=== PATIENT | female | born 1980 | race Hispanic/Latino ===

== ENCOUNTER 2023-03-27 22:16 | Day surgery (SDC) | payer OTHER ==
[~2023-03-27] VITALS: Ht 162.6 cm; Wt 74.4 kg
[2023-03-27 23:52] LABS: BASO % 0.3 % (0.0-1.0); EOS % 0.1 % (0.0-3.0); HEMATOCRIT 39.1 % (36.0-47.0); HEMOGLOBIN 13.2 g/dl (12.0-15.5); LYMPH % 12.8 % (24.0-44.0); MEAN CORPUSCULAR HEMOGLOBIN 28.9 pg (27.0-33.0); MEAN CORPUSCULAR HGB CONC 33.8 g/dl (32.0-36.5); MEAN CORPUSCULAR VOLUME 85.7 fl (80.0-96.0); MONO # 1.1 10^3/uL (0.0-0.8); MONO % 7.2 % (2.0-8.0); NEUTROPHILS # 12.2 10^3/uL (1.5-8.5); NEUTROPHILS % 79.1 % (36.0-66.0); PLATELET COUNT, AUTOMATED 328 10^3/uL (150-450); RED BLOOD COUNT 4.56 10^6/uL (4.00-5.40); WHITE BLOOD COUNT 15.4 10^3/uL (4.0-10.0)
[2023-03-28] VITALS (9 sets, daily range): BP systolic 113–145; BP diastolic 56–85; TEMP 97.6–98.5; O2SAT 96–100
[2023-03-28 00:17] LABS: LIPASE 22 U/L (12-53)
[2023-03-28 00:19] LABS: ALBUMIN 3.6 G/DL (3.2-5.2); ALKALINE PHOSPHATASE 87 U/L (46-116); ALT/SGPT 25 U/L (7.0-40); AST/SGOT 16 U/L (<34); BILIRUBIN,DIRECT 0.3 MG/DL (<0.4); BILIRUBIN,TOTAL 1.2 MG/DL (0.3-1.2); BLOOD UREA NITROGEN 7 MG/DL (9-23); CALCIUM LEVEL 8.6 MG/DL (8.5-10.1); CARBON DIOXIDE LEVEL 23 MMOL/L (20-31); CHLORIDE LEVEL 105 MMOL/L (98-107); CREATININE FOR GFR 0.48 MG/DL (0.55-1.30); GLOMERULAR FILTRATION RATE > 60.0 (>58); GLUCOSE, FASTING 112 MG/DL (60-100); SODIUM LEVEL 137 MMOL/L (136-145); TOTAL PROTEIN 6.9 G/DL (5.7-8.2)
[2023-03-28 00:20] LABS: HCG, SERUM QUALITATIVE NEGATIVE (NEGATIVE)
[2023-03-28] MEDS ORDERED: ONDANSETRON 4MG 2ML VIAL IV ONE (00:35)
[2023-03-28] MEDS ORDERED: NS 1,000 ML IV SCH (00:35)
[2023-03-28] MEDS ORDERED: MORPHINE 4 MG/ML 1ML VIAL IV ONE (00:35)
[2023-03-28] MEDS ORDERED: ISOVUE-370 76% 100ML VIAL As Ordered ONE (00:52)
[2023-03-28] MEDS ORDERED: ERTAPENEM SODIUM 1 GM in NS MINI-BAG PLUS 50 ML IV ONE (02:10)
[2023-03-28] MEDS ORDERED: VITMTA PO (02:14)
[2023-03-28] MEDS ORDERED: HOME MED LIST COMPLETE! XX SCH (02:15)
[2023-03-28 03:07] LABS: RSV AMPLIFICATION NEGATIVE (NEGATIVE)
[2023-03-28] MEDS ORDERED: SUGAMMADEX SODIUM 500 MG/5 ML VIAL (BRIDION) As Ordered ONE (05:40)
[2023-03-28] MEDS ORDERED: propofoL 200 MG/20 ML VIAL As Ordered ONE (05:40)
[2023-03-28] MEDS ORDERED: ROCURONIUM BROMIDE 50MG/5ML VIAL As Ordered ONE (05:40)
[2023-03-28] MEDS ORDERED: LIDOCAINE 2% 100MG/5ML SDV (FOR ANES.) As Ordered ONE (05:40)
[2023-03-28] MEDS ORDERED: ONDANSETRON 4MG 2ML VIAL As Ordered ONE (05:42)
[2023-03-28] MEDS ORDERED: fentaNYL 250 MCG/5 ML INJECTION As Ordered ONE (05:47)
[2023-03-28] MEDS ORDERED: MIDAZOLAM INJ 2MG/2ML VIAL As Ordered ONE (05:47)
[2023-03-28] MEDS ORDERED: ZOSYN 3.375GM VIAL As Ordered ONE (06:24)
[2023-03-28] MEDS ORDERED: ACETAMINOPHEN 1000MG 100ML IV BAG As Ordered ONE (06:34)
[2023-03-28] MEDS ORDERED: KETOROLAC 60MG 2ML VIAL As Ordered ONE (07:27)
[2023-03-28] MEDS ORDERED: ONDANSETRON 4MG 2ML VIAL IV PRN ×2 (08:10→09:00)
[2023-03-28] MEDS ORDERED: fentaNYL 100 MCG/2 ML INJECTION IV PRN (08:10)
[2023-03-28] MEDS ORDERED: MORPHINE 2 MG/ML 1ML VIAL IV PRN (08:10)
[2023-03-28] MEDS ORDERED: LR 1,000 ML IV SCH (08:10)
[2023-03-28] MEDS ORDERED: HYDROMORPHONE HCL 0.5 MG/ 0.5 ML SYRINGE IV PRN (08:10)
[2023-03-28] MEDS ORDERED: oxyCODONE 5MG TAB PO PRN (08:10)
[2023-03-28] MEDS ORDERED: NORCO, ANEXSIA 5/325MG TABLET (HYDROcodone/ACETAMINOPHEN) PO PRN ×2 (09:00)
[2023-03-28] MEDS: SENOKOT S TAB PO SCH ×2 (09:00→23:29)
[2023-03-28] MEDS: PIPERACILLIN/TAZOBACTAM SOD 3.375 GM in D5W MINI-BAG PLUS 50 ML IV SCH ×2 (13:30→19:21)
[2023-03-29] VITALS: BP 113/66; TEMP 98.2; O2SAT 97
[2023-03-29] MEDS: PIPERACILLIN/TAZOBACTAM SOD 3.375 GM in D5W MINI-BAG PLUS 50 ML IV SCH ×2 (01:44→06:46)
[2023-03-29 04:00] VITALS: BP 121/62; TEMP 96.7; O2SAT 98
[2023-03-29 06:21] LABS: HEMOGLOBIN 10.8 g/dl (12.0-15.5); MEAN CORPUSCULAR HEMOGLOBIN 28.7 pg (27.0-33.0); MEAN CORPUSCULAR HGB CONC 32.7 g/dl (32.0-36.5); MEAN CORPUSCULAR VOLUME 87.8 fl (80.0-96.0); PLATELET COUNT, AUTOMATED 272 10^3/uL (150-450); RED BLOOD COUNT 3.76 10^6/uL (4.00-5.40); WHITE BLOOD COUNT 14.3 10^3/uL (4.0-10.0)
[2023-03-29 08:00] VITALS: BP 124/71; TEMP 97.6; O2SAT 98
[2023-03-29] MEDS: SENOKOT S TAB PO SCH (09:34)
[2023-03-29] MEDS ORDERED: HYDR-3715 PO (11:03)
[2023-03-29 12:00] VITALS: BP 133/76; TEMP 97.7; O2SAT 98
== END 2023-03-29 12:35 | disposition home or self-care (01) ==
LOC: M ED 22:16 → M SDC 03-28 03:04 → M PED 03-28 03:20 → M SDC 03-29 12:35
PROVIDERS: ATTEND Surgery
DX: K35.80 Unspecified acute appendicitis (principal)
CPT/HCPCS: 36415; 44970; 74177; 80048; 80076; 83690; 84703; 85025; 85027; 87631; 88304; 93041; 99285; J0131; J0665; J1100; J1335; J1885; J2250; J2405; J2543; J3010; Q9967

== ENCOUNTER 2023-11-21 07:01 | Outpatient (CLI) | payer OTHER ==
[~2023-11-21] VITALS: Ht 162.6 cm; Wt 72.7 kg
[2023-11-21] VITALS (7 sets, daily range): BP systolic 123–172; BP diastolic 71–87; O2SAT 96–100
[~2023-11-21 07:01] MED LIST: HYDR-3715 PO; VITMTA PO
[2023-11-21] MEDS: methylPREDNISolone 125MG 2ML VIAL IV ONE (07:43)
[2023-11-21] MEDS: diphenhydrAMINE 25MG CAP PO ONE (07:44)
[2023-11-21] MEDS: ACETAMINOPHEN TAB 650MG DOSE (2X325MG) PO ONE (07:44)
[2023-11-21] MEDS: OCRELIZUMAB 300 MG in NS 250 ML IV ONE (08:18)
== END 2023-11-21 11:50 ==
LOC: M INFU 07:01
PROVIDERS: ATTEND Psychiatry & Neurology Neurology
DX: G35 Multiple sclerosis (principal)
CPT/HCPCS: 96365; 96366; 96367; J2350; J2919

== ENCOUNTER 2023-12-05 07:31 | Outpatient (CLI) | payer OTHER ==
[~2023-12-05] VITALS: Ht 162.6 cm; Wt 78.1 kg
[2023-12-05 07:50] VITALS: BP 133/63; O2SAT 98
[2023-12-05] MEDS: methylPREDNISolone 125MG 2ML VIAL IV ONE (07:53)
[2023-12-05] MEDS: diphenhydrAMINE 25MG CAP PO ONE (07:53)
[2023-12-05] MEDS: ACETAMINOPHEN TAB 650MG DOSE (2X325MG) PO ONE (07:53)
[2023-12-05] MEDS: OCRELIZUMAB 300 MG in NS 250 ML IV ONE (08:19)
[2023-12-05 09:00] VITALS: BP 125/72; O2SAT 99
[2023-12-05 09:30] VITALS: BP 132/63; O2SAT 99
[2023-12-05 09:59] VITALS: BP 123/68; O2SAT 98
[2023-12-05 10:27] VITALS: BP 122/72; O2SAT 98
[2023-12-05 11:45] VITALS: BP 126/65; O2SAT 97
== END 2023-12-05 11:45 ==
LOC: M INFU 07:31
PROVIDERS: ATTEND Psychiatry & Neurology Neurology
DX: G35 Multiple sclerosis (principal)
CPT/HCPCS: 96365; 96366; 96375; J2350; J2919

== ENCOUNTER → 2024-06-20 | Outpatient (CLI) | payer OTHER ==
[~2024-06-20] VITALS: Ht 162.6 cm; Wt 75.0 kg
[2024-06-20] MEDS: ACETAMINOPHEN 325 MG TAB PO ONE (07:31)
[2024-06-20] MEDS: methylPREDNISolone 125MG 2ML VIAL IV ONE (07:31)
[2024-06-20] MEDS: diphenhydrAMINE 25MG CAP PO ONE (07:31)
[2024-06-20 07:36] VITALS: BP 139/62; O2SAT 99
[2024-06-20] MEDS: OCRELIZUMAB 600 MG in NS 500 ML IV ONE (08:13)
[2024-06-20 08:45] VITALS: BP 127/73; O2SAT 95
[2024-06-20 09:45] VITALS: BP 120/74; O2SAT 100
[2024-06-20 10:15] VITALS: BP 116/64; O2SAT 100
[2024-06-20 12:00] VITALS: BP 124/59; O2SAT 98
== END ==
LOC: M INFU 07:05
PROVIDERS: ATTEND Nurse Practitioner Family
DX: G35 Multiple sclerosis (principal)
CPT/HCPCS: 96365; 96366; 96375; J2350; J2919